=== PATIENT | female | born 1970 | race Caucasian/White ===

== ENCOUNTER 2017-01-29 15:32 | Emergency (ER) | payer OTHER ==
[2017-01-29 15:42] VITALS: BP 140/71
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
== END 2017-01-29 21:21 | disposition left against medical advice (07) ==
LOC: ED 15:32
DX: Z53.21 Procedure and treatment not carried out due to patient leaving prior to being seen by health care provider (principal)
CPT/HCPCS: 72040